=== PATIENT | female | born 1960 | race Caucasian/White ===

== ENCOUNTER 2020-10-01 23:56 | Emergency (ER) | payer BC, SELFPAY ==
[2020-10-02] VITALS: BP 126/73; PULSE 64; RESP 16; TEMP 36.4
--- NOTE | 2020-10-02 00:16 | ED.GENADUL_ITS ---
Discharge Plan Disposition Patient Disposition: HOME Condition: Good Discharge Details Clinical Impression: Allergic urticaria, Hives ED Provider: Mario Lang Home Meds and New Rx's Prescriptions: New prednisone 50 MG tablet 50 mg PO DAILY Qty: 5 RF: 0 Discharge Instructions Instructions: Urticaria (ED), General Allergic Reaction (ED) Additional Instructions: At this time your signs and symptoms appear consistent with an allergic reaction. Thankfully it is not severe anaphylaxis and does not require epinephrine. Please take the Benadryl (25 mg every 6 hours) and prednisone as directed. If you notice any worsening of your symptoms, or any new symptoms such as vomiting, diarrhea, fever, chills, shortness of breath, worsening rash, chest pain, numbness, weakness, or fainting , please return immediately to the emergency department for reevaluation. Please follow up with your primary care provider as soon as possible for reassessment and reevaluation. As always, it was a pleasure participating in your medical care today. Medical Decision Making This is a pleasant 60-year-old female with no significant past medical history except for history of allergies to sesame seeds and sesame seed oil who presents today for evaluation of hives. Patient states that last night she ate some salmon which is slightly atypical for her, and at 2 AM she woke with itching and hives. She took a Benadryl which did improve her symptoms. Later during the day she again had salmon around dinnertime. Both slightly before and then subsequently after that she noticed significant worsening of her hives and itching. She has subsequently taken 5 doses of Benadryl since then. She notes no improvement with the medication now. She denies any throat swelling sensation, nausea vomiting or diarrhea, chest pain or shortness of breath, or other complaints. She denies any sensation of lesions in her mouth, or burning or dysuria or burning in the genital region. The worst reaction she has ever had with sesame seed oil is mild rash, she has not needed her EpiPen before to be used. She did not use her EpiPen today. No other complaints at this time. No new medications, no recent antibiotics, no new detergents, no other new foods. Of note patient did have a mild cellulitis in her left hand from a bee sting 4 to 5 weeks ago, but has not been on any medications for quite some time. The second Covid shot was provided over 3 months ago. No other complaints at this time. Exam demonstrates notable maculopapular hive/urticarial-like rash of the arms chest back abdomen pelvis and legs and neck. No oral lesions are noted. No genital lesions. Negative Nikolsky sign. No large vesicles or bulla. No pa lpable purpura. No mucosal lesions. No evidence of severe cellulitis. No evidence of vaccine preventable rash. No signs of anaphylaxis, no other systemic involvement. No swelling in the posterior oropharynx. No diarrhea. No wheezes. Symptoms appear consistent with a mild allergic reaction. We we will give IV Benadryl, Solu-Medrol, and famotidine. Suspect the causative agent may be the same and that she ate earlier, however this is not certain. We will gently rehydrate, monitor closely and reassess. No indication for epinephrine or emergent intubation at this time. 1 AM Reassessment the patient has complete resolution of her rash. There is no hives or erythema anymore. She feels well. No evidence of anaphylaxis. Symptoms likely secondary to an ingested allergic agent, no need for epinephrine. We will continue Benadryl and prednisone on an outpatient basis. Discussed red flags which to return. No signs of any other life-threatening compromise at this time. I have extensively reviewed the treatment plan and discharge instructions with the patient and their family. I have addressed all patient concerns at this time. The patient and family was made aware of what symptoms to monitor for that would warrant a return to the emergency department. Discussed the plan with the patient and family, they demonstrate verbal understanding and agreement with our assessment and plan at this time. The documentation in this chart was dictated using [employer] dictation software. Please excuse any dictation errors. HPI General Date/Time Provider Initiated Documentation: 10/01/20 23:57 . HPI Narrative: This is a pleasant 60-year-old female with no significant past medical history except for history of allergies to sesame seeds and sesame seed oil who presents today for evaluation of hives. Patient states that last night she ate some salmon which is slightly atypical for her, and at 2 AM she woke with itching and hives. She took a Benadryl which did improve her symptoms. Later during the day she again had salmon around dinnertime. Both slightly before and then subsequently after that she noticed significant worsening of her hives and itching. She has subsequently taken 5 doses of Benadryl since then. She notes no improvement with the medication now. She denies any throat swelling sensation, nausea vomiting or diarrhea, chest pain or shortness of breath, or other complaints. She denies any sensation of lesions in her mouth, or burning or dysuria or burning in the genital region. The worst reaction she has ever had with sesame seed oil is mild rash, she has not needed her EpiPen before to be used. She did not use her EpiPen today. No other complaints at this time. No new medications, no recent antibiotics, no new detergents, no other new foods. Of note patient did have a mild cellulitis in her left hand from a bee sting 4 to 5 weeks ago, but has not been on any medications for quite some time. The second Covid shot was provided over 3 months ago. No other complaints at this time. Related Data Home Medications Medication Instructions Recorded Confirmed prednisone 50 mg PO DAILY #5 tab 10/02/20 Previous Rx's Medication Instructions Recorded prednisone 50 mg PO DAILY #5 tab 10/02/20 Review of Systems All systems reviewed & are unremarkable except as noted in HPI and below [facility] Social History Smoking risk assessment performed?: No Exam Narrative Exam Narrative: 1.Const: Well-nourished, Well-developed, appearing stated age 2.Eyes: PERRL, no conjunctival injection, and symmetrical lids. 3.ENT: Atraumatic external nose and ears. Moist MM. Neck: Symmetric, trachea midline, No thyromegaly. 4.CVS: +S1/S2, No murmurs or gallops. Peripheral pulses 2+ and equal in all extremities. Brisk capillary refill in all extremities. 5.RESP: Unlabored respiratory effort. Clear to auscultation bilaterally. No wheezes rales or rhonchi 6.GI: Soft, Nontender/Nondistended, No hepatosplenomegaly. No guarding or rebound. 7.MSK: Normocephalic/Atraumatic, Extremities w/o deformity or ttp No cyanosis or clubbing, Normal movement of all extremities 8.Skin: Warm, Dry. Notable maculopapular hive/urticarial-like rash of the arms chest back abdomen pelvis and legs and neck. No oral lesions are noted. No genital lesions. Negative Nikolsky sign. No large vesicles or bulla. No palpable purpura. No mucosal lesions. No evidence of severe cellulitis. No evidence of vaccine preventable rash. 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 Sensation grossly intact, no focal neurologic deficits. 10.Psych: (AAO) x3. Appropriate mood and affect
[2020-10-02 00:29] LABS: Abs Immature Grans 0.01 10^3/uL (0.0-0.06); Absolute Basophil Count 0.03 10^3/uL (0.0-0.2); Absolute Eosinophil Count 0.37 10^3/uL (0.0-0.7); Absolute Lymphocyte Count 2.33 10^3/uL (1.2-3.4); Absolute Monocyte Count 0.63 10^3/uL (0.1-0.8); Absolute Neutrophil Count 3.22 10^3/uL (1.2-6.7); Basophils % 0.5; Eosinophils % 5.6; HCT 37.7 % (36.0-46.0); HGB 12.3 g/dL (11.2-15.7); Immature Grans % 0.2; Lymphocytes % 35.4; MCH 29.3 pg (27.0-33.0); MCHC 32.6 % (32.0-36.0); MCV 89.8 fL (80-95); MPV 9.5 fL (8.0-11.0); Monocytes % 9.6; Neutrophils % 48.7; Nucleated RBC 0 %; Platelet Count 226 10^3/uL (130-400); RDW 12.2 % (11.7-14.6); RDW-SD 39.9 fL; WBC 6.59 10^3/uL (4.4-10.8)
[2020-10-02 00:30] VITALS: BP 135/75; PULSE 75; RESP 15; O2SAT 100
[2020-10-02] MEDS: Normal Saline 500 ML IV (00:32)
[2020-10-02] MEDS: methylPREDNISolone SUCC 125 MG VIAL IVP (00:35)
[2020-10-02] MEDS: diphenhydrAMINE 50 MG/ML VIAL 25 MG IVP (00:36)
[2020-10-02 00:42] LABS: ALT 32 U/L (14-59); AST 20 U/L (15-37); Albumin 3.7 g/dL (3.4-5.0); Alkaline Phosphatase 86 U/L (46-116); Anion Gap 5.4 mmol/L (3-11); BUN 24 mg/dL (7-18); Bilirubin, Total 0.3 mg/dL (0.2-1.0); CO2 30.6 mmol/L (21.0-32.0); Calcium 9.2 mg/dL (8.5-10.1); Chloride 101 mmol/L (98-107); Estimated GFR 56.56 (mL/min/1.73m2); Glucose 89 mg/dL (74-106); Potassium 4.3 mmol/L (3.5-5.1); Sodium 137 mmol/L (136-145); Total Protein 6.8 g/dL (6.4-8.2)
[2020-10-02] MEDS: FAMOTIDINE 20 MG/50 ML BAG 200 MG IVPB (00:44)
[2020-10-02 00:45] VITALS: BP 128/79; PULSE 67; RESP 14; O2SAT 99
[2020-10-02 01:00] VITALS: BP 130/72; PULSE 66; RESP 15; O2SAT 99
[2020-10-02 01:15] VITALS: BP 122/71; PULSE 63; RESP 15; O2SAT 99
== END 2020-10-02 01:46 | disposition home or self-care (01) ==
LOC: ER 10-02 02:14
PROVIDERS: Emergency Provider Student in an Organized Health Care Education/Training Program
DX: L50.0 Allergic urticaria (principal)
CPT/HCPCS: 80053; 96361; 96374; 96375; 99284; 85025; 99283; J1200; J2930

== ENCOUNTER 2020-11-01 10:54 | Emergency (ER) | payer BC, SELFPAY ==
[2020-11-01 10:58] VITALS: BP 134/78; PULSE 87; RESP 18; TEMP 36.6; O2SAT 96
--- NOTE | 2020-11-01 11:13 | W.ED.GENAD ---
Discharge Plan Disposition Patient Disposition: HOME Condition: Stable Discharge Details Clinical Impression: Localized hives Primary Care Provider: Elder Elizondo ED Provider: Isha Muller Home Meds and New Rx's Prescriptions: New prednisone 20 mg tablet 20 mg PO DAILY 5 Days Qty: 5 RF: 0 famotidine [Pepcid] 20 mg tablet 20 mg PO DAILY 5 Days Qty: 5 RF: 0 No Action epinephrine [Epi E-Z Pen] 0.3 mg/0.3 mL Auto-Injector 0.3 ml subcut PRN PRNRF: 0 Discharge Instructions Instructions: Urticaria (ED) Additional Instructions: Continue to take 1 or 2 tablets of Benadryl every 6-8 hours as needed for hives and itching. A prescription for Pepcid and prednisone was sent to the pharmacy we have on file for you for the next 5 days. Please take these once daily as directed. Follow up with primary care provider in 3-5 days. Return to ED or be seen sooner if any worsening or concerns. Increase oral fluids. Please take Tylenol or Ibuprofen with food every 4-6 hours as needed for pain and swelling. Discharge Data Discharge Date/Time-TO BE ENTERED AT DEPARTURE: 11/01/20 11:34 Medical Decision Making 60-year-old female presents the ER chief complaint of a local urticarial reaction. Patient states that she was out gardening yesterday and noticed some mild generalized itching. She then noticed a hive that presented to her left anterior chest wall, she took Benadryl not resolved. She then noticed another hives to her left lateral forearm. No other hives noted or your urticaria. Denies any cough, shortness of breath or trouble swallowing. She reports that she did have a moderate to severe allergic reaction approximately 1 month ago in which she was seen in the ER and received IV medications. She then took 5 days worth of H2 blockers Benadryl and prednisone. She does have a EpiPen at home which she has not needed to use. She presents today with increased anxiety about having a larger scale allergic reaction. At this time we will give Pepcid 40 mg prednisone 20 mg I will prescribe patient a 3-day course and instructed to take Benadryl 1 to 2 tablets every 6-8 hours as needed. Patient instructed on follow-up and strict return instructions. Verbalized understanding. She remained hemodynamically stable throughout stay. This text was generated using [employer] dictation system, please disregard any oddities of phrase or misspellings. HPI General Mode of arrival: ambulatory. Date/Time Provider Initiated Documentation: 11/01/20 10:55. Limitations to Documentation: no limitations. Information obtained by: patient, RN notes reviewed and old records reviewed. HPI Narrative: 60-year-old female presents the ER chief complaint of a local urticarial reaction. Patient states that she was out gardening yesterday and noticed some mild generalized itching. She then noticed a hive that presented to her left anterior chest wall, she took Benadryl not resolved. She then noticed another hives to her left lateral forearm. No other hives noted or your urticaria. Denies any cough, shortness of breath or trouble swallowing. She reports that she did have a moderate to severe allergic reaction approximately 1 month ago in which she was seen in the ER and received IV medications. She then took 5 days worth of H2 blockers Benadryl and prednisone. She does have a EpiPen at home which she has not needed to use. She presents today with increased anxiety about having a larger scale allergic reaction. Related Data Home Medications Medication Instructions Recorded Confirmed epinephrine [Epi E-Z Pen] 0.3 ml SUBCUT PRN PRN 10/10/20 11/01/20 famotidine [Pepcid] 20 mg PO DAILY 5 Days #5 tab 11/01/20 prednisone 20 mg PO DAILY 5 Days #5 tab 11/01/20 Previous Rx's Medication Instructions Recorded famotidine [Pepcid] 20 mg PO DAILY 5 Days #5 tab 11/01/20 prednisone 20 mg PO DAILY 5 Days #5 tab 11/01/20 Allergies Allergy/AdvReac Type Severity Reaction Status Date / Time No Known Drug Allergies AdvReac Unverified 11/01/20 11:03 General Stated Complaint: Allergic CIRA: 3 Review of Systems All systems reviewed & are unremarkable except as noted in HPI and below Integumentary/Breasts Skin/Breast: Reports pruritus and Reports skin swelling (Left lateral forearm) [facility] Social History Smoking/Tobacco Use Status: Never Smoking risk assessment performed?: Yes Alcohol Intake: current Alcohol Intake frequency: a few times a week Drug use: Never Substance use type: does not use Do you feel safe at home: Yes Do you feel safe in your relationship?: Yes Exam Const General: cooperative, healthy appearing, comfortable, well developed and well groomed Nutritional Appearance: average body habitus and well nourished Orientation: alert, awake and oriented x3 Resp Effort & Inspection: normal respiratory effort and able to speak in complete sentences Auscultation: clear to auscultation bilaterally and no wheezes Cardio Palpation: normal PMI Rate: regular rate Rhythm: regular rhythm Heart Sounds: S1 normal and S2 normal Skin Full body images: 1. Small area of red raised maculopapular lesion. There is a very small questionable puncture wound adjacent to this. Possibly a spider bite. 2. Small area of erythema. Course Vital Signs Vital signs: Vital Signs Temperature 36.6 C 11/01/20 10:58 Pulse 87 11/01/20 10:58 Respiratory Rate 18 11/01/20 10:58 Blood Pressure 134/78 11/01/20 10:58 Pulse Oximetry 96 11/01/20 10:58 Temperature 36.6 C 11/01/20 10:58 Temperature Source Temporal Artery Scan 11/01/20 10:58 Pulse 87 11/01/20 10:58 Respiratory Rate 18 11/01/20 10:58 Respiratory Effort Non-Labored 11/01/20 11:04 Respiratory Pattern Normal 11/01/20 11:04 Blood Pressure 134/78 11/01/20 10:58 Blood Pressure Position Sitting 11/01/20 10:58 Pulse Oximetry 96 11/01/20 10:58 Oxygen Delivery Method Room Air 11/01/20 10:58 Oxygen Flow Rate 0 11/01/20 10:58 Pain Level 0 11/01/20 10:58
[2020-11-01] MEDS: Famotidine 20 MG TAB 40 MG PO (11:22)
[2020-11-01] MEDS: predniSONE 20 MG TAB PO (11:22)
[2020-11-01 11:33] VITALS: BP 123/78
== END 2020-11-01 11:34 | disposition home or self-care (01) ==
PROVIDERS: Emergency Provider Registered Nurse Emergency
DX: L50.9 Urticaria, unspecified (principal)
CPT/HCPCS: 99283; J7512